=== PATIENT | male | born 1950 | race Caucasian/White ===

== ENCOUNTER → 2016-05-20 | Outpatient (CLI) | payer OTHER, MEDICARE ==
--- NOTE | 2016-05-20 16:59 | US ---
Ultrasound extremity nonvascular History: Left anterior chest wall palpable abnormality. History of non-Hodgkin's lymphoma. Findings: Ultrasound imaging of the left anterior lateral chest wall near the anterolateral left low er ribs was performed without evidence of definite focal solid or cystic mass. Impression: 1. No ultrasound evidence of solid or cystic mass in the region of palpable concern left anterior lat eral chest wall region. 2. Recommend CT chest or abdomen for further evaluation.
== END ==
LOC: BRMIMAGING 13:14
PROVIDERS: ATTEND Internal Medicine Hematology & Oncology
DX: R22.2 Localized swelling, mass and lump, trunk (principal); Z85.72 Personal history of non-Hodgkin lymphomas
CPT/HCPCS: 76882-PO